=== PATIENT | female | born 1945 | race Hispanic/Latino ===

== ENCOUNTER 2017-08-12 06:47 | Day surgery (SDC) | payer MEDICARE ==
[2012-09-29 00:51] VITALS: BMI 30.9
[2017-08-12 07:47] VITALS: RESP 14
[2017-08-12] MEDS ORDERED: Midazolam 2 MG/2 ML VIAL ONE (08:01)
[2017-08-12] MEDS ORDERED: Propofol 10 mg/ml Inj (20 ML) ONE (08:01)
[2017-08-12] MEDS ORDERED: Lidocaine 1% Inj (20ml) ONE (08:03)
[2017-08-12] MEDS ORDERED: Sodium Chloride 0.9% 1,000 ML IV SCH (08:45)
[2017-08-12 09:40] VITALS: BP 168/71; PULSE 50; TEMP 98.4; O2SAT 95
== END 2017-08-12 10:15 | disposition home or self-care (01) ==
LOC: ENDO 06:47
PROVIDERS: ATTEND Specialist
DX: D12.4 Benign neoplasm of descending colon (principal); D12.3 Benign neoplasm of transverse colon; K62.1 Rectal polyp; K57.30 Diverticulosis of large intestine without perforation or abscess without bleeding; K64.4 Residual hemorrhoidal skin tags; K64.8 Other hemorrhoids; Z98.0 Intestinal bypass and anastomosis status
CPT/HCPCS: 45380; 45385; 88305; J2250; J2704; J7040 ×2

== ENCOUNTER 2017-11-14 13:48 | Inpatient (IN) | payer MEDICARE ==
[2017-11-14 13:49] VITALS: BMI 30.9
[2017-11-14] MEDS ORDERED: Sodium Chloride 0.9% 500 ML IV STA (14:22)
[2017-11-14] MEDS ORDERED: Sodium Chloride 0.9% 1,000 ML IV STA (14:55)
--- NOTE | 2017-11-14 14:56 | RAD ---
Date of service: 11/14/2017 HISTORY: abd pain/ n/v/d COMPARISON: 07/08/2014 FINDINGS: LUNGS: No active pulmonary disease. PLEURA: No significant pleural effusion identified, no pneumothorax apparent. CARDIOVASCULAR: Normal. OSSEOUS STRUCTURES: No significant abnormalities. VISUALIZED UPPER ABDOMEN: Normal. OTHER FINDINGS: None. IMPRESSION: No active disease.
[2017-11-14 15:46] LABS: VENOUS BLOOD GAS BASE EXCESS -5.5 mmol/L (0.0-2.0); VENOUS BLOOD GAS PO2 54 mm/Hg (30-55); VENOUS BLOOD PH 7.27 (7.32-7.43)
[2017-11-14 15:51] LABS: BASO # 0.03 K/mm3 (0.0-2.0); BASO % 0.1 % (0.0-3.0); EOS # 0.1 (0.0-0.7); EOS % 0.3 % (1.5-5.0); GRAN # 15.14 (1.4-6.5); GRAN % 75.5 % (50.0-68.0); HEMOGLOBIN 8.4 g/dL (12.0-16.0); LYMPH # 3.6 (1.2-3.4); LYMPH % 18.1 % (22.0-35.0); MEAN CELL VOLUME 90.2 fl (80.0-105.0); MEAN CORPUSCULAR HEMOGLOBIN 31.6 pg (25.0-35.0); MEAN PLATELET VOLUME 10.5 fl (7.0-11.0); MONO # 1.2 (0.1-0.6); RBC 2.66 10^6/uL (3.5-6.1); RED CELL DISTRIBUTION WIDTH 14.1 % (11.5-14.5); WHITE BLOOD COUNT 20.1 10^3/ul (4.5-11.0)
[2017-11-14 16:16] LABS: INR 0.96 (0.93-1.08); PARTIAL THROMBOPLASTIN TIME 21.3 Seconds (25.1-36.5); PROTHROMBIN TIME 10.9 SECONDS (9.4-12.5)
[2017-11-14 16:39] LABS: BLOOD UREA NITROGEN 119 mg/dL (7-21); GFR AFRICAN-AMERICAN > 60; GFR NON-AFRICAN AMERICAN > 60
[2017-11-14 16:40] LABS: ALB/GLOB RATIO 1.5 (1.1-1.8); ALBUMIN 3.7 g/dL (3.0-4.8)
[2017-11-14 16:41] LABS: ALT/SGPT 37 U/L (7-56); AST/SGOT 24 U/L (14-36); LIPASE 185 U/L (23-300)
[2017-11-14 16:42] LABS: TROPONIN I < 0.01 ng/mL
--- NOTE | 2017-11-14 17:02 | ED PDOC ---
Arrival/HPI - General Historian: Patient - History of Present Illness Time/Duration: Other (3 days) <Yani Nguyen - Last Filed: 11/14/17 19:37> <Karlos Johns - Last Filed: 11/16/17 15:46> - General Chief Complaint: GI Problem Time Seen by Provider: 11/14/17 14:22 - History of Present Illness Narrative History of Present Illness (Text): 11/14/17 17:00 72-year-old female presents today with nausea vomiting and diarrhea 3 days. Patient states night after eating a beef kebab she started having vomiting and diarrhea. Patient states both the vomitus and diarrhea or black in color. Patient denies any blood thinners. Patient denies any abdominal pain. Denies headaches or dizziness. Patient states she's feeling generally fatigued. She denies chest pain or shortness of breath. Patient states she finished her radiation for breast cancer and has started a new chemotherapy medication. Patient is denying any abdominal pain. Patient states she has not vomited or had any diarrhea since yesterday. Patient denies any urinary symptoms. No other complaints (Yani Nguyen) Past Medical History - Provider Review Nursing Documentation Reviewed: Yes - Travel History Have you recently traveled outside [place] w/in the past 3 mons?: No - Infectious Disease Hx of Infectious Diseases: None - Cardiac Hx Hypertension: Yes - Neurological Hx Paralysis: No - Hematological/Oncological Hx Blood Transfusions: No Hx Blood Transfusion Reaction: No Hx Cancer: Yes (Right breast) - Musculoskeletal/Rheumatological Hx Musculoskeletal Disorders: Yes (OSTEOARTHRITIS SPINE) - Psychiatric Hx Substance Use: No - Surgical History Other/Comment: Right Breast surgery for CA. - Anesthesia Hx Anesthesia Reactions: No Hx Malignant Hyperthermia: No - Suicidal Assessment Feels Threatened In Home Enviroment: No <Yani Nguyen - Last Filed: 11/14/17 19:37> Family/Social History - Physician Review Nursing Documentation Reviewed: Yes Family/Social History: Unknown Family HX Smoking Status: Never Smoked Hx Alcohol Use: Yes (RARE) Frequency of alcohol use: Socially Hx Substance Use: No <Yani Nguyen - Last Filed: 11/14/17 19:37> Allergies/Home Meds <Yani Nguyen - Last Filed: 11/14/17 19:37> <Karlos Johns - Last Filed: 11/16/17 15:46> Allergies/Adverse Reactions: Allergies codeine Allergy (Severe, Verified 11/14/17 14:23) SEVERE SWELLING/RASH Home Medications: Home Meds Medication Instructions Recorded Confirmed Ibuprofen [Motrin Tab] 800 mg PO PRN PRN 11/15/17 11/15/17 Letrozole [Femara] 2.5 mg DAILY 11/15/17 11/15/17 Lisinopril [Zestril] 40 mg PO DAILY 11/15/17 11/15/17 Valsartan/Hydrochlorothiazide 1 each PO DAILY 11/15/17 11/15/17 [Valsartan-Hctz 160-25 mg Tab] diltiaZEM [Cardizem] 240 mg PO DAILY 11/15/17 11/15/17 Review of Systems - Review of Systems Constitutional: Fatigue. absent: Fevers Respiratory: absent: SOB, Cough Gastrointestinal: Diarrhea, Nausea, Vomiting. absent: Abdominal Pain Genitourinary Female: absent: Dysuria, Frequency, Hematuria Musculoskeletal: absent: Arthralgias, Back Pain, Neck Pain Skin: absent: Rash, Pruritis Neurological: absent: Headache, Dizziness Psychiatric: absent: Anxiety, Depression, Suicidal Ideation <Yani Nguyen - Last Filed: 11/14/17 19:37> Physical Exam Vital Signs Reviewed: Yes Temperature: Afebrile Blood Pressure: Normal Pulse: Regular Respiratory Rate: Normal Appearance: Positive for: Well-Appearing, Non-Toxic, Comfortable Pain Distress: None Mental Status: Positive for: Alert and Oriented X 3 - Systems Exam Head: Present: Atraumatic Mouth: Present: Moist Mucous Membranes Neck: Present: Normal Range of Motion Respiratory/Chest: Present: Clear to Auscultation, Good Air Exchange. No: Respiratory Distress, Accessory Muscle Use Cardiovascular: Present: Regular Rate and Rhythm, Normal S1, S2. No: Murmurs Abdomen: No: Tenderness, Distention, Rebound, Guarding Rectal: Present: Occult Blood, Melena, Normal Rectal Tone. No: Gross Blood Back: Present: Normal Inspection Upper Extremity: Present: Normal ROM Neurological: Present: GCS=15, Speech Normal Skin: Present: Warm, Dry, Normal Color, Pale. No: Rashes Psychiatric: Present: Alert, Oriented x 3 <Yani Nguyen - Last Filed: 11/14/17 19:37> Vital Signs Temp Pulse Resp BP Pulse Ox 11/14/17 18:30 98.2 F 64 16 118/78 98 11/14/17 18:10 64 18 114/79 98 11/14/17 17:22 58 L 18 139/60 98 11/14/17 16:20 56 L 18 119/74 98 11/14/17 15:30 78 18 124/63 99 11/14/17 14:16 98.3 F 70 18 104/57 L 98 Medical Decision Making Reassessment Condition: Re-examined, Improved <Yani Nguyen - Last Filed: 11/14/17 19:37> - Critical Care Critical Care Minutes: 30 minutes <Karlos Johns - Last Filed: 11/16/17 15:46> ED Course and Treatment: 11/14/17 17:13 72yr old female with vomiting and diarrhea x 3 days. pt found to be pale, slightly hypotensive with heme positive black stools. pt was typed and crossed for 2 units. consent for blood transfusion was obtained. cbc; cbc; 20 hgb; 8.4 CMp: bun 119 trop; wnl INR wnl ekg; sinus bradycardia at 55 bpm normal axis no ST elevations cxr; wnl lactate; 2.2 pt reassessment; pt feeling much better. BP improved. vitals stable. dr. johns discussed case with ICU; dr. machuca will see patient at bedside. 11/14/17 17:18 dr. machuca (icu) evaluated patient at bedside; he advise protonix drip, Hold off on blood transfusion at present time and will recheck hemoglobin. advised consult dr. becerra. States patient is not a code sepsis; only give maintenance fluids. dr. johns discussed the case with dr. voss. accepts admission all aspects of this case were discussed the attending of record. impression; GI bleed admit to ICU (Yani Nguyen) Patient hypotensive, pale on initial exam, but no chest pain or abdominal pain. Patient with no tachycardia. Rectal exam positive. Patient with significant anemia when compared to previous labs. IV fluids given with improvement in BP and patient's color improved. Will admit to ICU for active gi bleedingl (Karlos Johns) - Lab Interpretations Microbiology Results: Microbiology Results 11/14/17 15:15 Blood Blood Culture - Preliminary NO GROWTH AFTER 48 HOURS 11/14/17 14:50 Blood Blood Culture - Preliminary NO GROWTH AFTER 48 HOURS Lab Results: 11/14/17 14:50 11/14/17 14:22 Lab Results 11/14/17 15:30: Blood Type Confirm B POSITIVE 11/14/17 14:50: Blood Type B POSITIVE, Antibody Screen Negative, Crossmatch See Detail, BBK History Checked No verified bt 11/14/17 14:50: PT 10.9, INR 0.96, APTT 21.3 L 11/14/17 14:50: WBC 20.1 H D, RBC 2.66 L, Hgb 8.4 L D, Hct 24.0 L, MCV 90.2 D, MCH 31.6, MCHC 35.0, RDW 14.1, Plt Count 229, MPV 10.5, Gran % 75.5 H, Lymph % ( Auto) 18.1 L, Long % (Auto) 6.0, Eos % (Auto) 0.3 L, Baso % (Auto) 0.1, Gran # 15.14 H, Lymph # (Auto) 3.6 H, Long # (Auto) 1.2 H, Eos # (Auto) 0.1, Baso # ( Auto) 0.03 11/14/17 14:50: pO2 54, VBG pH 7.27 L, VBG pCO2 46.0, VBG HCO3 21.1, VBG Total CO2 22.5, VBG O2 Sat (Calc) 90.5 H, VBG Base Excess -5.5 L, VBG Potassium 4.1, Glucose 159 H, Lactate 2.2 H, FiO2 21.0, Sodium 137.0, Chloride 107.0, Venous Blood Potassium 4.1 11/14/17 14:22: Sodium 138, Potassium 4.3, Chloride 105, Carbon Dioxide 19 L, Anion Gap 18, BUN 119 H, Creatinine 0.5 L, Est GFR ( Amer) > 60, Est GFR (Non-Af Amer) > 60, Random Glucose 148 H, Calcium 9.0, Total Bilirubin 0.5, AST 24, ALT 37, Alkaline Phosphatase 68, Lactate Dehydrogenase 484, Total Creatine Kinase 30 L, Troponin I < 0.01, Total Protein 6.1, Albumin 3.7, Globulin 2.4, Albumin/Globulin Ratio 1.5, Lipase 185 - RAD Interpretation Radiology Orders: 11/14/17 14:22 CHEST PORTABLE [RAD] Stat - Medication Orders Current Medication Orders: Discontinued Medications Sodium Chloride (Sodium Chloride 0.9%) 1,000 mls @ 999 mls/hr IV .Q1H1M STA Stop: 11/14/17 15:55 Last Admin: 11/14/17 15:00 Dose: 999 mls/hr eMAR Start Stop Document 11/14/17 15:00 ROBERT (Rec: 11/14/17 15:56 ROBERT HI-PC) Intravenous Solution Start Date 11/14/17 Start Time 15:00 End Date 11/14/17 End time 16:00 Total Infusion Time 60 Sodium Chloride (Sodium Chloride 0.9%) 1,000 mls @ 100 mls/hr IV .Q10H [facility] Last Admin: 11/14/17 17:15 Dose: 100 mls/hr eMAR Start Stop Document 11/14/17 17:15 ROBERT (Rec: 11/14/17 17:18 ROBERT HI-PC) Intravenous Solution Start Date 11/14/17 Start Time 17:15 Pantoprazole Sodium (Protonix 40mg Ivpb) 40 mg in 100 mls @ 20 mls/hr IVPB .Q5H [facility] Last Admin: 11/16/17 09:51 Dose: Lactated Ringer's (Lactated Ringer's) 1,000 mls @ 100 mls/hr IV .Q10H [facility] Last Admin: 11/15/17 22:11 Dose: 100 mls/hr eMAR Start Stop Document 11/15/17 22:11 CDL (Rec: 11/15/17 22:11 CDL [id number]) Intravenous Solution Start Date 11/15/17 Start Time 22:11 Sodium Chloride (Sodium Chloride 0.9%) 1,000 mls @ 100 mls/hr IV .Q10H [facility] Ondansetron HCl (Zofran Inj) 4 mg IVP STAT STA Stop: 11/14/17 15:14 Last Admin: 11/14/17 15:50 Dose: 4 mg IVP Administration Document 11/14/17 15:50 ROBERT (Rec: 11/14/17 15:57 ROBERT HI-PC) Charges for Administration # of IVP Administrations 1 Pantoprazole Sodium (Protonix Inj) 40 mg IVP STAT STA Stop: 11/14/17 14:41 Last Admin: 11/14/17 15:50 Dose: 40 mg IVP Administration Document 11/14/17 15:50 ROBERT (Rec: 11/14/17 15:57 ROBERT [id number]) Charges for Administration # of IVP Administrations 1 Disposition/Present on Arrival - Present on Arrival Any Indicators Present on Arrival: No History of DVT/PE: No History of Uncontrolled Diabetes: No Urinary Catheter: No History of Decub. Ulcer: No History Surgical Site Infection Following: None - Disposition Have Diagnosis and Disposition been Completed?: Yes Disposition Time: 16:30 Patient Plan: Admission <Yani Nguyen - Last Filed: 11/14/17 19:37> <Karlos Johns - Last Filed: 11/16/17 15:46> - Disposition Diagnosis: GI bleed, Anemia Disposition: HOSPITALIZED Condition: CRITICAL
[2017-11-14] MEDS ORDERED: Sodium Chloride 0.9% 1,000 ML IV SCH (17:15)
[2017-11-14 17:39] LABS: URINE BILIRUBIN NEGATIVE (NEGATIVE); URINE BLOOD NEGATIVE (NEGATIVE); URINE GLUCOSE (UA) NEGATIVE (NEGATIVE); URINE LEUKOCYTE ESTERASE SMALL Leu/uL (NEGATIVE); URINE PROTEIN NEGATIVE mg/dL (<30 mg/dL); URINE UROBILINOGEN 0.2 E.U./dL (<1 E.U./dL)
[2017-11-14 17:41] LABS: URINE APPEARANCE CLEAR (CLEAR); URINE COLOR YELLOW (YELLOW)
[2017-11-14] MEDS: Pantoprazole 40mg/100mL NS 40 MG/100 ML BAG IVPB SCH ×2 (17:54→23:14)
[2017-11-14 17:56] LABS: URINE EPITHELIAL CELLS 0 - 2 /hpf (0-5)
[2017-11-14 18:58] LABS: HEMOGLOBIN 7.5 g/dL (12.0-16.0); MEAN CELL VOLUME 90.7 fl (80.0-105.0); MEAN CORPUSCULAR HEMOGLOBIN 31.6 pg (25.0-35.0); MEAN CORPUSCULAR HGB CONC 34.9 g/dl (31.0-37.0); MEAN PLATELET VOLUME 10.1 fl (7.0-11.0); RBC 2.37 10^6/uL (3.5-6.1); RED CELL DISTRIBUTION WIDTH 14.1 % (11.5-14.5); WHITE BLOOD COUNT 17.5 10^3/ul (4.5-11.0)
[2017-11-14 18:59] LABS: VENOUS BLOOD GAS BASE EXCESS -7.5 mmol/L (0.0-2.0); VENOUS BLOOD GAS PO2 52 mm/Hg (30-55); VENOUS BLOOD PH 7.23 (7.32-7.43)
[2017-11-14 22:45] LABS: VENOUS BLOOD GAS BASE EXCESS -5.8 mmol/L (0.0-2.0); VENOUS BLOOD GAS PO2 62 mm/Hg (30-55); VENOUS BLOOD PH 7.31 (7.32-7.43)
--- NOTE | 2017-11-15 02:30 | CON ---
DATE: 11/14/2017 HISTORY OF PRESENT ILLNESS: This is a 72-year-old lady with history of hypertension and breast cancer who presented with 3 days' of coffee-ground vomiting and black stool/diarrhea, started without any provoking events, and becoming more frequent. She did have some fatty food right before she had first episode of vomiting. At some point, she felt a little bit lightheaded and had near syncopal episode. She also reports that she was generally fatigued. She denies chest pain, shortness of breath. She had radiation for breast cancer and has started new chemotherapy medication. She denies any abdominal pain. Since yesterday, she did not have any diarrhea or vomiting. She also denies any urinary symptoms. PAST MEDICAL HISTORY: Breast cancer and hypertension. HOME MEDICATIONS: Hydrochlorothiazide and lisinopril. FAMILY HISTORY: Noncontributory. SOCIAL HISTORY: No alcohol or illicit drug abuse. No tobacco smoking. REVIEW OF SYSTEMS: Review of 12-organ system other than mentioned in history of present illness is negative. PHYSICAL EXAMINATION: VITAL SIGNS: Blood pressure 139/60, heart rate 58, respiratory rate 18, oxygen saturation 98% on room air, temperature 98.3. ENT: Head and neck atraumatic. LUNGS: Clear auscultation bilaterally. HEART: Regular rate and rhythm. S1 and S2 normal. ABDOMEN: Soft, nontender, nondistended. MUSCULOSKELETAL: No C/C/E. NEUROLOGIC: The patient moves all extremities spontaneously. SKIN: Moist. PSYCHIATRIC: The patient is alert, awake, and oriented x3. LABORATORY DATA: WBC 20.1, hemoglobin 8.4 (last hemoglobin about year ago was 13.2), platelet count 229. Sodium 138, potassium 4.3, chloride 105, carbon dioxide 19, BUN 119, creatinine 0.5, glucose 148. AST 24, ALT 37, total bilirubin 0.5, lipase 185. INR 0.96, PTT 21.3. VBG showed lactic acid 2.2 and pH 7.8. ASSESSMENT AND PLAN: This is a 72-year-old lady who presented with massive upper gastrointestinal bleed with elevated lactic acid level and significant drop in the baseline hemoglobin (massive--based on her symptoms associated with upper GI bleed) and drop in Hb level--based on value about a year ago). We will proceed with 2 large-bore PIV, fluid resuscitation, repeating lactic acid to ascertain resolution of lactic acidosis, Protonix drip, GI consultation for consideration of upper endoscopy. We will maintain hemoglobin level within 7 to 9 range, once lactic acidosis resolved and she is asymptomatic (Arnie et al, [facility] 2013). Serial CBC every 4 hours for now. Mild bradycardia most likely due to cardizem-->will hold. No troponin elevation. ICU admission. ccm time 40 min Rohan Low MD MTDMily
[2017-11-15 02:50] LABS: HEMOGLOBIN 8.4 g/dL (12.0-16.0); MEAN CELL VOLUME 88.8 fl (80.0-105.0); MEAN CORPUSCULAR HEMOGLOBIN 31.2 pg (25.0-35.0); MEAN CORPUSCULAR HGB CONC 35.1 g/dl (31.0-37.0); MEAN PLATELET VOLUME 10.4 fl (7.0-11.0); RBC 2.69 10^6/uL (3.5-6.1); WHITE BLOOD COUNT 13.2 10^3/ul (4.5-11.0)
[2017-11-15 03:43] LABS: VENOUS BLOOD GAS BASE EXCESS -4.3 mmol/L (0.0-2.0); VENOUS BLOOD GAS PO2 64 mm/Hg (30-55); VENOUS BLOOD PH 7.32 (7.32-7.43)
[2017-11-15] MEDS: Pantoprazole 40mg/100mL NS 40 MG/100 ML BAG IVPB SCH ×6 (04:19→23:30)
[2017-11-15 06:25] LABS: HEMOGLOBIN 8.2 g/dL (12.0-16.0); MEAN CELL VOLUME 88.8 fl (80.0-105.0); MEAN CORPUSCULAR HEMOGLOBIN 30.6 pg (25.0-35.0); MEAN CORPUSCULAR HGB CONC 34.5 g/dl (31.0-37.0); RBC 2.68 10^6/uL (3.5-6.1); RED CELL DISTRIBUTION WIDTH 14.3 % (11.5-14.5); WHITE BLOOD COUNT 13.4 10^3/ul (4.5-11.0)
[2017-11-15 07:06] LABS: ALB/GLOB RATIO 1.3 (1.1-1.8); CALCIUM 8.7 mg/dL (8.4-10.5)
[2017-11-15 07:13] LABS: VENOUS BLOOD GAS BASE EXCESS -4.5 mmol/L (0.0-2.0); VENOUS BLOOD GAS PO2 102 mm/Hg (30-55); VENOUS BLOOD PH 7.33 (7.32-7.43)
[2017-11-15] MEDS: Lactated Ringer's 1,000 ML IV SCH ×3 (07:50→22:11)
--- NOTE | 2017-11-15 09:28 | PN ---
DATE: 11/15/2017 SUBJECTIVE: The patient is seen and examined at bedside. She is comfortable. She talks full sentences. She is not in respiratory or otherwise distress. She did not have any hematemesis or coffee-ground vomiting overnight. She did not have any tarry stool, bloody stool or melenic stool overnight. She did not have overnight chest pain, shortness of breath or abdominal pain. PHYSICAL EXAMINATION: VITAL SIGNS: Heart rate 53, blood pressure 126/62, oxygen saturation 99% on room air, respiratory rate 18. ENT: Head and neck atraumatic. LUNGS: Clear to auscultation bilaterally. HEART: Regular rate and rhythm. S1, S2 normal. ABDOMEN: Soft, nontender, nondistended. MUSCULOSKELETAL: No C/C/E. NEURO: The patient moves all extremities spontaneously. SKIN: Moist. PSYCH: The patient is alert, awake and oriented x3. LABORATORY DATA: WBC 13.4, hemoglobin 8.2 (the patient received 1 unit of PRBC with appropriate increment in hemoglobin level from 7.5-8.4), platelet count 179. Lactic acid 1.2 (down from 2.2). Sodium 142, potassium 4.4, chloride 112, carbon dioxide 21, BUN 81, creatinine 1.3, glucose 126. Troponin, first one is less than 0.01. The second one is pending. MEDICATIONS: Protonix drip, normal saline at 100 mL/hour (will be switched to lactated Ringer). ASSESSMENT AND PLAN: This 72-year-old lady who presented yesterday to [facility] [place] [facility] with concern for hemorrhagic shock due to upper gastrointestinal bleed. Her lactic acidosis resolved, her blood pressure remained stable throughout ICU course, her hemoglobin responded near appropriately to 1 unit of blood transfusion. She remains asymptomatic and did not have any signs of upper gastrointestinal bleed overnight. She is a little bit bradycardic due to extended release formulation of Cardizem that she has been taking at home, however, it is on hold now. She is alert, awake, oriented, able to protect her airways, not in respiratory or otherwise distress. We will continue with serial CBC, however, will taper frequency of CBC checks. GI consultation is pending. Protonix drip continued. Okay to downgrade to telemetry. ccm time 40 min Rohan Low MD STEPHAN
--- NOTE | 2017-11-15 13:29 | CT ---
Date of service: 11/14/2017 PROCEDURE: CT Abdomen and Pelvis without intravenous contrast HISTORY: GI Bleed COMPARISON: None. TECHNIQUE: Without contrast.. Contrast dose: Radiation dose: Total exam DLP = 1009 mGy-cm. This CT exam was performed using one or more of the following dose reduction techniques: Automated exposure control, adjustment of the mA and/or kV according to patient size, and/or use of iterative reconstruction technique. FINDINGS: LOWER THORAX: Unremarkable. LIVER: Unremarkable. No gross lesion or ductal dilatation. GALLBLADDER AND BILE DUCTS: Unremarkable. PANCREAS: Unremarkable. No gross lesion or ductal dilatation. SPLEEN: Unremarkable. ADRENALS: Unremarkable. No mass. KIDNEYS AND URETERS: Unremarkable. No hydronephrosis. No solid mass. VASCULATURE: Unremarkable. No aortic aneurysm. BOWEL: There is mild diverticulosis of the descending and sigmoid colon without evidence of diverticulitis APPENDIX: Unremarkable. Normal appendix. PERITONEUM: Unremarkable. No free fluid. No free air. LYMPH NODES: Unremarkable. No enlarged lymph nodes. BLADDER: Unremarkable. REPRODUCTIVE: Unremarkable. BONES: No acute fracture. OTHER FINDINGS: The report concurs with the preliminary [facility] report IMPRESSION: There is mild diverticulosis of the descending and sigmoid colon without evidence of diverticulitis
--- NOTE | 2017-11-15 15:03 | HP ---
HISTORY OF PRESENT ILLNESS: The patient is a 72 year old woman with a past medical history of hypertension and breast cancer who presented for evaluation of a 3 day history of nausea, vomiting and diarrhea. The patient reports that she was in her usual state of health until approximately 3 days prior to presentation to the ED when she developed mild epigastric abdominal pain and subsequently developed nausea. Her symptoms progressed to vomiting of reported coffee-ground emesis as well as melena and hematochezia. The patient reports that several hours later she developed lightheadedness and near syncope. Given her symptoms she opted for ED evaluation. Upon arrival to the ED she was found to be hypotensive and bradycardic. She was also somnolent but arousable. Labs demonstrated a hemoglobin of 8.4 (baseline Hb 12-13). The patient was promptly evaluated by the ICU team and was started on IV fluid resuscitation, transfused 2 units of PRBCs and subsequently admitted to the ICU for continued management of symptomatic anemia and probable GI bleed. PAST MEDICAL HISTORY: As per HPI. PAST SURGICAL HISTORY: None. ALLERGIES: Codeine. MEDICATIONS: Valsartan/HCTZ 160/25 mg p.o. daily, Lisinopril 40 mg p.o. daily, Diltiazem 240 mg p.o. daily, Letrozole 2.5 mg p.o. daily and Motrin 800 mg p.o. t.i.d. p.r.n. pain. FAMILY HISTORY: Noncontributory. SOCIAL HISTORY: The patient denies any toxic habits. REVIEW OF SYSTEMS: A 12-point review of systems is negative except as per HPI. PHYSICAL EXAMINATION: VITAL SIGNS: Temperature 98, pulse 48, blood pressure 123/54, respiratory rate 18, oxygen saturation 99% on room air. GENERAL: No apparent distress. HEENT: PERRL, EOMI. No scleral icterus. Mild conjunctival pallor is noted. NECK: No JVD. No bruits. LUNGS: Clear to auscultation. CARDIOVASCULAR: Regular rate and rhythm. Normal S1 and S2. ABDOMEN: Normoactive bowel sounds, soft, tender to palpation to epigastrium with voluntary guarding. No rigidity. No tympany. EXTREMITIES: No edema. NEUROLOGIC: Awake, alert and oriented x 3. No focal motor deficits. LABORATORY DATA: WBC 13.4, hemoglobin 8.2, hematocrit 24, platelets 179. Sodium 142, potassium 4.4, chloride 112, bicarb 21, BUN 81, creatinine 1.3, glucose 126. IMAGING STUDIES: CT of the abdomen and pelvis without contrast demonstrates mild diverticulosis of the descending and sigmoid colon with no evidence of diverticulitis. ASSESSMENT: The patient is a 72 year old woman with a past medical history of hypertension and breast cancer who presented with a 3 day history of hematemesis, melena and malaise and was initially admitted to the ICU for management of symptomatic anemia and suspected upper GI bleed. PLAN: 1. Symptomatic anemia, likely secondary to upper GI bleed s/p multiple transfusions of PRBCs, improving. Labs demonstrate stage H/H. GI evaluation with Dr. Doherty is ordered and pending. We will continue to monitor CBC daily and transfuse as needed. 2. Probable upper GI bleed. The patient remains on Protonix drip and IV fluid hydration. She has also been transfused multiple units of PRBCs. She is pending EGD with Dr. Doherty tomorrow morning. 3. Hypertension. Blood pressure remains stable off antihypertensives. We will continue to monitor hemodynamics and resume antihypertensives as needed. 4. Bradycardia, etiology likely secondary to Cardizem. We will continue to hold medications and resume as needed. 5. Prophylaxis. GI prophylaxis is not indicated as the patient remains on Protonix drip. DVT prophylaxis is not indicated as the patient is ambulatory. CODE STATUS: Full code. Clayton Hoang MD MTDMily
--- NOTE | 2017-11-15 15:09 | CP.CCUPN ---
<Guanaco Piña - Last Filed: 11/15/17 15:03> CCU Subjective - Physician Review Subjective (Free Text): Guanaco Piña DO PGY-1, ICU Progress note for Dr. Low Pt seen and examined at bedside. Pt has no complaints at this time. No acute events overnight. Pt has did not have a bowel movement for the past one day, but is passing gas. Pt denies fever, headache, lightheadedness, dizziness, weakness, chest pain, palpitations, SOB, abdominal pain, hematemesis, hematochezia, melena, n/v/d, urinary complaints, paresthesias. A 12-point ROS was reviewed and unremarkable except as above. CCU Objective - Vital Signs / Intake & Output Vital Signs (Last 4 hours): Vital Signs Temp Pulse Resp BP 11/15/17 12:21 98 F 48 L 18 123/54 L 11/15/17 12:00 98 F 48 L 18 123/54 L 11/15/17 11:36 97.4 F L 48 L 16 135/66 11/15/17 11:16 97.1 F L 46 L 15 134/50 L Intake and Output (Last 8hrs): Intake & Output 11/15/17 11/15/17 11/15/17 06:59 14:59 22:59 Intake Total 861 375 Output Total 1755 Balance -894 375 Weight 80.739 kg Intake: IV 761 Left Forearm 436 Left Hand 325 Blood Product 0 325 Red Blood Cells Cpd As1 325 Lr Unit [id number] Red Blood Cells Cpd As1 0 Lr Unit [id number] Other 100 50 Red Blood Cells Cpd As1 50 Lr Unit [id number] Red Blood Cells Cpd As1 100 Lr Unit [id number] Output: Urine 1755 Urine, Voided 1755 - Physical Exam Head: Positive for: Atraumatic Extroacular Muscles: Positive for: EOMI Mouth: Positive for: Moist Mucous Membranes Neck: Positive for: Normal Range of Motion Respiratory/Chest: Positive for: Clear to Auscultation, Good Air Exchange. Negative for: Respiratory Distress, Accessory Muscle Use Cardiovascular: Positive for: Regular Rate and Rhythm, Normal S1, S2. Negative for: Murmurs Abdomen: Positive for: Normal Bowel Sounds. Negative for: Tenderness, Distention, Rebound, Guarding Back: Positive for: Normal Inspection Upper Extremity: Positive for: Normal Inspection, Normal ROM, Capillary Refill < 2s Lower Extremity: Positive for: Normal Inspection, Capillary Refill < 2 s Neurological: Positive for: GCS=15, Speech Normal Skin: Positive for: Warm, Dry, Normal Color. Negative for: Rashes Psychiatric: Positive for: Alert, Oriented x 3 - Medications Active Medications: Active Medications Generic Name Dose Route Start Last Admin Trade Name Freq PRN Reason Stop Dose Admin Pantoprazole Sodium 40 mg in 100 mls @ 20 mls/hr 11/14/17 17:30 11/15/17 14: 28 Protonix 40mg Ivpb IVPB 20 mls/hr .Q5H GARTH Administration Lactated Ringer's 1,000 mls @ 100 mls/hr 11/15/17 07:45 11/15/17 07:50 Lactated Ringer's IV 100 mls/hr .Q10H GARTH Administration - Patient Studies Lab Studies: Microbiology Studies 11/14/17 16:50 Urine Culture - Final Urine Lab Studies 11/15/17 11/15/17 11/15/17 Range/Units 06:00 06:00 06:00 WBC (4.5-11.0) 10^3/ul RBC (3.5-6.1) 10^6/uL Hgb (12.0-16.0) g/dL Hct (36.0-48.0) % MCV (80.0-105.0) fl MCH (25.0-35.0) pg MCHC (31.0-37.0) g/dl RDW (11.5-14.5) % Plt Count (120.0-450.0) 10^3/uL MPV (7.0-11.0) fl pO2 102 H (30-55) mm/Hg VBG pH 7.33 (7.32-7.43) VBG pCO2 40.0 (40-60) VBG HCO3 21.1 (21-28) mmol/l VBG Total CO2 22.3 (22-28) mmol.L VBG O2 Sat (Calc) 99.8 H (40-65) % VBG Base Excess -4.5 L (0.0-2.0) mmol/L VBG Potassium 4.4 (3.6-5.2) mmol/L Sodium 142 139.0 (132-148) mmol/L Chloride 112 H 113.0 H (98-107) mmol/L Glucose 131 H (65-105) mg/dl Lactate 1.2 (0.7-2.1) mmol/L FiO2 21.0 % Potassium 4.4 (3.6-5.0) mmol/L Carbon Dioxide 21 (21-33) mmol/L Anion Gap 13 (10-20) BUN 81 H (7-21) mg/dL Creatinine 1.3 H (0.7-1.2) mg/dl Est GFR ( Amer) 48 Est GFR (Non-Af Amer) 40 Random Glucose 126 H (70-110) mg/dL Calcium 8.7 (8.4-10.5) mg/dL Phosphorus 3.6 (2.5-4.5) mg/dL Magnesium 2.2 (1.7-2.2) mg/dL Total Bilirubin 1.2 (0.2-1.3) mg/dL AST 26 (14-36) U/L ALT 42 (7-56) U/L Alkaline Phosphatase 63 (38-126) U/L Troponin I < 0.01 ng/mL Total Protein 5.3 L (5.8-8.3) g/dL Albumin 3.0 (3.0-4.8) g/dL Globulin 2.3 gm/dL Albumin/Globulin Ratio 1.3 (1.1-1.8) Venous Blood Potassium 4.4 (3.6-5.2) mmol/L Urine Color (YELLOW) Urine Appearance (CLEAR) Urine pH (4.7-8.0) Ur Specific [place] (1.005-1.035) Urine Protein (<30 mg/dL) mg/dL Urine Glucose (UA) (NEGATIVE) mg/dL Urine Ketones (NEGATIVE) mg/dL Urine Blood (NEGATIVE) Urine Nitrate (NEGATIVE) Urine Bilirubin (NEGATIVE) Urine Urobilinogen (<1 E.U./dL) E.U./dL Ur Leukocyte Esterase (NEGATIVE) Qasim/uL Urine RBC (0-2) /hpf Urine WBC (0-6) /hpf Ur Epithelial Cells (0-5) /hpf 11/15/17 11/15/17 11/15/17 Range/Units 06:00 03:30 02:30 WBC 13.4 H 13.2 H D (4.5-11.0) 10^3/ul RBC 2.68 L 2.69 L (3.5-6.1) 10^6/uL Hgb 8.2 L 8.4 L (12.0-16.0) g/dL Hct 23.8 L 23.9 L (36.0-48.0) % MCV 88.8 88.8 (80.0-105.0) fl MCH 30.6 31.2 (25.0-35.0) pg MCHC 34.5 35.1 (31.0-37.0) g/dl RDW 14.3 14.0 (11.5-14.5) % Plt Count 179 165 (120.0-450.0) 10^3/uL MPV 10.0 10.4 (7.0-11.0) fl pO2 64 H (30-55) mm/Hg VBG pH 7.32 (7.32-7.43) VBG pCO2 42.0 (40-60) VBG HCO3 21.6 (21-28) mmol/l VBG Total CO2 22.9 (22-28) mmol.L VBG O2 Sat (Calc) 96.4 H (40-65) % VBG Base Excess -4.3 L (0.0-2.0) mmol/L VBG Potassium 4.4 (3.6-5.2) mmol/L Sodium 138.0 (132-148) mmol/L Chloride 113.0 H (98-107) mmol/L Glucose 141 H (65-105) mg/dl Lactate 1.1 (0.7-2.1) mmol/L FiO2 21.0 % Potassium (3.6-5.0) mmol/L Carbon Dioxide (21-33) mmol/L Anion Gap (10-20) BUN (7-21) mg/dL Creatinine (0.7-1.2) mg/dl Est GFR ( Amer) Est GFR (Non-Af Amer) Random Glucose (70-110) mg/dL Calcium (8.4-10.5) mg/dL Phosphorus (2.5-4.5) mg/dL Magnesium (1.7-2.2) mg/dL Total Bilirubin (0.2-1.3) mg/dL AST (14-36) U/L ALT (7-56) U/L Alkaline Phosphatase (38-126) U/L Troponin I ng/mL Total Protein (5.8-8.3) g/dL Albumin (3.0-4.8) g/dL Globulin gm/dL Albumin/Globulin Ratio (1.1-1.8) Venous Blood Potassium 4.4 (3.6-5.2) mmol/L Urine Color (YELLOW) Urine Appearance (CLEAR) Urine pH (4.7-8.0) Ur Specific [place] (1.005-1.035) Urine Protein (<30 mg/dL) mg/dL Urine Glucose (UA) (NEGATIVE) mg/dL Urine Ketones (NEGATIVE) mg/dL Urine Blood (NEGATIVE) Urine Nitrate (NEGATIVE) Urine Bilirubin (NEGATIVE) Urine Urobilinogen (<1 E.U./dL) E.U./dL Ur Leukocyte Esterase (NEGATIVE) Qasim/uL Urine RBC (0-2) /hpf Urine WBC (0-6) /hpf Ur Epithelial Cells (0-5) /hpf 11/14/17 11/14/17 11/14/17 Range/Units 22:32 18:39 18:39 WBC 17.5 H (4.5-11.0) 10^3/ul RBC 2.37 L (3.5-6.1) 10^6/uL Hgb 7.5 L (12.0-16.0) g/dL Hct 21.5 L (36.0-48.0) % MCV 90.7 (80.0-105.0) fl MCH 31.6 (25.0-35.0) pg MCHC 34.9 (31.0-37.0) g/dl RDW 14.1 (11.5-14.5) % Plt Count 220 (120.0-450.0) 10^3/uL MPV 10.1 (7.0-11.0) fl pO2 62 H 52 (30-55) mm/Hg VBG pH 7.31 L 7.23 L (7.32-7.43) VBG pCO2 40.0 48.0 (40-60) VBG HCO3 20.1 L 20.1 L (21-28) mmol/l VBG Total CO2 21.3 L 21.6 L (22-28) mmol.L VBG O2 Sat (Calc) 95.1 H 88.9 H (40-65) % VBG Base Excess -5.8 L -7.5 L (0.0-2.0) mmol/L VBG Potassium 4.1 4.1 (3.6-5.2) mmol/L Sodium 139.0 138.0 (132-148) mmol/L Chloride 113.0 H 110.0 H (98-107) mmol/L Glucose 142 H 132 H (65-105) mg/dl Lactate 1.2 1.3 (0.7-2.1) mmol/L FiO2 21.0 21.0 % Potassium (3.6-5.0) mmol/L Carbon Dioxide (21-33) mmol/L Anion Gap (10-20) BUN (7-21) mg/dL Creatinine (0.7-1.2) mg/dl Est GFR ( Amer) Est GFR (Non-Af Amer) Random Glucose (70-110) mg/dL Calcium (8.4-10.5) mg/dL Phosphorus (2.5-4.5) mg/dL Magnesium (1.7-2.2) mg/dL Total Bilirubin (0.2-1.3) mg/dL AST (14-36) U/L ALT (7-56) U/L Alkaline Phosphatase (38-126) U/L Troponin I ng/mL Total Protein (5.8-8.3) g/dL Albumin (3.0-4.8) g/dL Globulin gm/dL Albumin/Globulin Ratio (1.1-1.8) Venous Blood Potassium 4.1 4.1 (3.6-5.2) mmol/L Urine Color (YELLOW) Urine Appearance (CLEAR) Urine pH (4.7-8.0) Ur Specific [place] (1.005-1.035) Urine Protein (<30 mg/dL) mg/dL Urine Glucose (UA) (NEGATIVE) mg/dL Urine Ketones (NEGATIVE) mg/dL Urine Blood (NEGATIVE) Urine Nitrate (NEGATIVE) Urine Bilirubin (NEGATIVE) Urine Urobilinogen (<1 E.U./dL) E.U./dL Ur Leukocyte Esterase (NEGATIVE) Qasim/uL Urine RBC (0-2) /hpf Urine WBC (0-6) /hpf Ur Epithelial Cells (0-5) /hpf 11/14/17 Range/Units 16:50 WBC (4.5-11.0) 10^3/ul RBC (3.5-6.1) 10^6/uL Hgb (12.0-16.0) g/dL Hct (36.0-48.0) % MCV (80.0-105.0) fl MCH (25.0-35.0) pg MCHC (31.0-37.0) g/dl RDW (11.5-14.5) % Plt Count (120.0-450.0) 10^3/uL MPV (7.0-11.0) fl pO2 (30-55) mm/Hg VBG pH (7.32-7.43) VBG pCO2 (40-60) VBG HCO3 (21-28) mmol/l VBG Total CO2 (22-28) mmol.L VBG O2 Sat (Calc) (40-65) % VBG Base Excess (0.0-2.0) mmol/L VBG Potassium (3.6-5.2) mmol/L Sodium (132-148) mmol/L Chloride (98-107) mmol/L Glucose (65-105) mg/dl Lactate (0.7-2.1) mmol/L FiO2 % Potassium (3.6-5.0) mmol/L Carbon Dioxide (21-33) mmol/L Anion Gap (10-20) BUN (7-21) mg/dL Creatinine (0.7-1.2) mg/dl Est GFR ( Amer) Est GFR (Non-Af Amer) Random Glucose (70-110) mg/dL Calcium (8.4-10.5) mg/dL Phosphorus (2.5-4.5) mg/dL Magnesium (1.7-2.2) mg/dL Total Bilirubin (0.2-1.3) mg/dL AST (14-36) U/L ALT (7-56) U/L Alkaline Phosphatase (38-126) U/L Troponin I ng/mL Total Protein (5.8-8.3) g/dL Albumin (3.0-4.8) g/dL Globulin gm/dL Albumin/Globulin Ratio (1.1-1.8) Venous Blood Potassium (3.6-5.2) mmol/L Urine Color Yellow (YELLOW) Urine Appearance Clear (CLEAR) Urine pH 6.0 (4.7-8.0) Ur Specific [place] 1.015 (1.005-1.035) Urine Protein Negative (<30 mg/dL) mg/dL Urine Glucose (UA) Negative (NEGATIVE) mg/dL Urine Ketones Negative (NEGATIVE) mg/dL Urine Blood Negative (NEGATIVE) Urine Nitrate Negative (NEGATIVE) Urine Bilirubin Negative (NEGATIVE) Urine Urobilinogen 0.2 (<1 E.U./dL) E.U./dL Ur Leukocyte Esterase Small H (NEGATIVE) Qasim/uL Urine RBC 1 - 3 (0-2) /hpf Urine WBC 1 - 3 (0-6) /hpf Ur Epithelial Cells 0 - 2 (0-5) /hpf Laboratory Results - last 24 hr 11/14/17 11/14/17 11/14/17 16:50 18:39 18:39 WBC 17.5 H RBC 2.37 L Hgb 7.5 L Hct 21.5 L MCV 90.7 MCH 31.6 MCHC 34.9 RDW 14.1 Plt Count 220 MPV 10.1 pO2 52 VBG pH 7.23 L VBG pCO2 48.0 VBG HCO3 20.1 L VBG Total CO2 21.6 L VBG O2 Sat (Calc) 88.9 H VBG Base Excess -7.5 L VBG Potassium 4.1 Sodium 138.0 Chloride 110.0 H Glucose 132 H Lactate 1.3 FiO2 21.0 Potassium Carbon Dioxide Anion Gap BUN Creatinine Est GFR ( Amer) Est GFR (Non-Af Amer) Random Glucose Calcium Phosphorus Magnesium Total Bilirubin AST ALT Alkaline Phosphatase Troponin I Total Protein Albumin Globulin Albumin/Globulin Ratio Venous Blood Potassium 4.1 Urine Color Yellow Urine Appearance Clear Urine pH 6.0 Ur Specific [place] 1.015 Urine Protein Negative Urine Glucose (UA) Negative Urine Ketones Negative Urine Blood Negative Urine Nitrate Negative Urine Bilirubin Negative Urine Urobilinogen 0.2 Ur Leukocyte Esterase Small H Urine RBC 1 - 3 Urine WBC 1 - 3 Ur Epithelial Cells 0 - 2 11/14/17 11/15/17 11/15/17 22:32 02:30 03:30 WBC 13.2 H D RBC 2.69 L Hgb 8.4 L Hct 23.9 L MCV 88.8 MCH 31.2 MCHC 35.1 RDW 14.0 Plt Count 165 MPV 10.4 pO2 62 H 64 H VBG pH 7.31 L 7.32 VBG pCO2 40.0 42.0 VBG HCO3 20.1 L 21.6 VBG Total CO2 21.3 L 22.9 VBG O2 Sat (Calc) 95.1 H 96.4 H VBG Base Excess -5.8 L -4.3 L VBG Potassium 4.1 4.4 Sodium 139.0 138.0 Chloride 113.0 H 113.0 H Glucose 142 H 141 H Lactate 1.2 1.1 FiO2 21.0 21.0 Potassium Carbon Dioxide Anion Gap BUN Creatinine Est GFR ( Amer) Est GFR (Non-Af Amer) Random Glucose Calcium Phosphorus Magnesium Total Bilirubin AST ALT Alkaline Phosphatase Troponin I Total Protein Albumin Globulin Albumin/Globulin Ratio Venous Blood Potassium 4.1 4.4 Urine Color Urine Appearance Urine pH Ur Specific [place] Urine Protein Urine Glucose (UA) Urine Ketones Urine Blood Urine Nitrate Urine Bilirubin Urine Urobilinogen Ur Leukocyte Esterase Urine RBC Urine WBC Ur Epithelial Cells 11/15/17 11/15/17 11/15/17 06:00 06:00 06:00 WBC 13.4 H RBC 2.68 L Hgb 8.2 L Hct 23.8 L MCV 88.8 MCH 30.6 MCHC 34.5 RDW 14.3 Plt Count 179 MPV 10.0 pO2 102 H VBG pH 7.33 VBG pCO2 40.0 VBG HCO3 21.1 VBG Total CO2 22.3 VBG O2 Sat (Calc) 99.8 H VBG Base Excess -4.5 L VBG Potassium 4.4 Sodium 139.0 142 Chloride 113.0 H 112 H Glucose 131 H Lactate 1.2 FiO2 21.0 Potassium 4.4 Carbon Dioxide 21 Anion Gap 13 BUN 81 H Creatinine 1.3 H Est GFR ( Amer) 48 Est GFR (Non-Af Amer) 40 Random Glucose 126 H Calcium 8.7 Phosphorus 3.6 Magnesium 2.2 Total Bilirubin 1.2 AST 26 ALT 42 Alkaline Phosphatase 63 Troponin I Total Protein 5.3 L Albumin 3.0 Globulin 2.3 Albumin/Globulin Ratio 1.3 Venous Blood Potassium 4.4 Urine Color Urine Appearance Urine pH Ur Specific [place] Urine Protein Urine Glucose (UA) Urine Ketones Urine Blood Urine Nitrate Urine Bilirubin Urine Urobilinogen Ur Leukocyte Esterase Urine RBC Urine WBC Ur Epithelial Cells 11/15/17 06:00 WBC RBC Hgb Hct MCV MCH MCHC RDW Plt Count MPV pO2 VBG pH VBG pCO2 VBG HCO3 VBG Total CO2 VBG O2 Sat (Calc) VBG Base Excess VBG Potassium Sodium Chloride Glucose Lactate FiO2 Potassium Carbon Dioxide Anion Gap BUN Creatinine Est GFR ( Amer) Est GFR (Non-Af Amer) Random Glucose Calcium Phosphorus Magnesium Total Bilirubin AST ALT Alkaline Phosphatase Troponin I < 0.01 Total Protein Albumin Globulin Albumin/Globulin Ratio Venous Blood Potassium Urine Color Urine Appearance Urine pH Ur Specific [place] Urine Protein Urine Glucose (UA) Urine Ketones Urine Blood Urine Nitrate Urine Bilirubin Urine Urobilinogen Ur Leukocyte Esterase Urine RBC Urine WBC Ur Epithelial Cells EKG/Cardiology Studies: Cardiology / EKG Studies 11/14/17 16:58 EKG [ELECTROCARDIOGRAM] Stat Comment: Reason For Exam: vomit Review of Systems - Review of Systems All systems: reviewed and no additional remarkable complaints except (as per HPI ) Critical Care Progress Note - Prophylaxis GI Prophylaxis GI: PPI - Nutrition Nutrition: Nutrition Category Date Time Status NPO Diet [DIET] Diets 11/15/17 Breakfast Ordered Assessment/Plan - Assessment and Plan (Free Text) Assessment: Thi is a 72 year old female with PMHx of HTN, breast cancer who presented yesterday (11/14) [place] [facility] with massive upper GI bleed with elevated lactic acid level and significant drop in baseline Hgb. Pt's lactic acidosis has resolved, pt was transfused a 1 unit of pRBCs with 0.9 increase in Hgb. Pt's BP has been stable, and there have been no signs of GI bleeding overnight. She remains on protonix drip. Plan: Neuro: - Monitor for mental status changes Cardio: - Pt is hemodynamically stable - maintain MAP>65 - continue LR Pulm: - CXR (11/14) shows no active disease - maintain spo2 over 90% GI: - abdominal/pelv Ct without contrast shows mild diverticulosis of the descending and sigmoid colon without evidence of diverticulitis. - we will continue PTX ggt as per GI recs - GI recommends transfusion of pRBCs x 1 unit and transfer to telemetry - f/u serial CBC Renal: - replete electrolytes as needed - maintain euvolemia - continue LR IVF Endo: - maintain euglycemia ID: - lactic acidosis has resolved - WBC is trending downwards - UA (11/14) is positive for small leukocyte esterase - Urine Cx final shows no growth - BCx x 2 prelim shows no growth after 24 hours Heme: - H/h is stable (8.2, down from 8.4) - will transfuse 1 more unit of pRBCs as per GI PPX: PTX gtt; pt is ambulatory Dispo: Pt is stable and safe for transfer to med/surg; GI and PMD are agree with plan Case discussed and reviewed with attending physician, Dr. Low <Rohan Low - Last Filed: 11/15/17 18:55> CCU Objective - Vital Signs / Intake & Output Intake and Output (Last 8hrs): Intake & Output 11/15/17 11/15/17 11/15/17 06:59 14:59 22:59 Intake Total 861 375 0 Output Total 1755 1 Balance -894 375 -1 Weight 178 lb Intake: IV 761 Left Forearm 436 Left Hand 325 Oral 0 Blood Product 0 325 Red Blood Cells Cpd As1 325 Lr Unit [id number] Red Blood Cells Cpd As1 0 Lr Unit [id number] Other 100 50 Red Blood Cells Cpd As1 50 Lr Unit [id number] Red Blood Cells Cpd As1 100 Lr Unit [id number] Output: Urine 1755 1 Urine, Voided 1755 1 Other: # Bowel Movements 0 - Medications Active Medications: Active Medications Generic Name Dose Route Start Last Admin Trade Name Freq PRN Reason Stop Dose Admin Pantoprazole Sodium 40 mg in 100 mls @ 20 mls/hr 11/14/17 17:30 11/15/17 17: 34 Protonix 40mg Ivpb IVPB Not Given .Q5H GARTH Lactated Ringer's 1,000 mls @ 100 mls/hr 11/15/17 07:45 11/15/17 17:34 Lactated Ringer's IV Not Given .Q10H GARTH - Patient Studies Lab Studies: Microbiology Studies 11/14/17 16:50 Urine Culture - Final Urine Lab Studies 11/15/17 11/15/17 11/15/17 Range/Units 06:00 06:00 06:00 WBC (4.5-11.0) 10^3/ul RBC (3.5-6.1) 10^6/uL Hgb (12.0-16.0) g/dL Hct (36.0-48.0) % MCV (80.0-105.0) fl MCH (25.0-35.0) pg MCHC (31.0-37.0) g/dl RDW (11.5-14.5) % Plt Count (120.0-450.0) 10^3/uL MPV (7.0-11.0) fl pO2 102 H (30-55) mm/Hg VBG pH 7.33 (7.32-7.43) VBG pCO2 40.0 (40-60) VBG HCO3 21.1 (21-28) mmol/l VBG Total CO2 22.3 (22-28) mmol.L VBG O2 Sat (Calc) 99.8 H (40-65) % VBG Base Excess -4.5 L (0.0-2.0) mmol/L VBG Potassium 4.4 (3.6-5.2) mmol/L Sodium 142 139.0 (132-148) mmol/L Chloride 112 H 113.0 H (98-107) mmol/L Glucose 131 H (65-105) mg/dl Lactate 1.2 (0.7-2.1) mmol/L FiO2 21.0 % Potassium 4.4 (3.6-5.0) mmol/L Carbon Dioxide 21 (21-33) mmol/L Anion Gap 13 (10-20) BUN 81 H (7-21) mg/dL Creatinine 1.3 H (0.7-1.2) mg/dl Est GFR ( Amer) 48 Est GFR (Non-Af Amer) 40 Random Glucose 126 H (70-110) mg/dL Calcium 8.7 (8.4-10.5) mg/dL Phosphorus 3.6 (2.5-4.5) mg/dL Magnesium 2.2 (1.7-2.2) mg/dL Total Bilirubin 1.2 (0.2-1.3) mg/dL AST 26 (14-36) U/L ALT 42 (7-56) U/L Alkaline Phosphatase 63 (38-126) U/L Troponin I < 0.01 ng/mL Total Protein 5.3 L (5.8-8.3) g/dL Albumin 3.0 (3.0-4.8) g/dL Globulin 2.3 gm/dL Albumin/Globulin Ratio 1.3 (1.1-1.8) Venous Blood Potassium 4.4 (3.6-5.2) mmol/L 11/15/17 11/15/17 11/15/17 Range/Units 06:00 03:30 02:30 WBC 13.4 H 13.2 H D (4.5-11.0) 10^3/ul RBC 2.68 L 2.69 L (3.5-6.1) 10^6/uL Hgb 8.2 L 8.4 L (12.0-16.0) g/dL Hct 23.8 L 23.9 L (36.0-48.0) % MCV 88.8 88.8 (80.0-105.0) fl MCH 30.6 31.2 (25.0-35.0) pg MCHC 34.5 35.1 (31.0-37.0) g/dl RDW 14.3 14.0 (11.5-14.5) % Plt Count 179 165 (120.0-450.0) 10^3/uL MPV 10.0 10.4 (7.0-11.0) fl pO2 64 H (30-55) mm/Hg VBG pH 7.32 (7.32-7.43) VBG pCO2 42.0 (40-60) VBG HCO3 21.6 (21-28) mmol/l VBG Total CO2 22.9 (22-28) mmol.L VBG O2 Sat (Calc) 96.4 H (40-65) % VBG Base Excess -4.3 L (0.0-2.0) mmol/L VBG Potassium 4.4 (3.6-5.2) mmol/L Sodium 138.0 (132-148) mmol/L Chloride 113.0 H (98-107) mmol/L Glucose 141 H (65-105) mg/dl Lactate 1.1 (0.7-2.1) mmol/L FiO2 21.0 % Potassium (3.6-5.0) mmol/L Carbon Dioxide (21-33) mmol/L Anion Gap (10-20) BUN (7-21) mg/dL Creatinine (0.7-1.2) mg/dl Est GFR ( Amer) Est GFR (Non-Af Amer) Random Glucose (70-110) mg/dL Calcium (8.4-10.5) mg/dL Phosphorus (2.5-4.5) mg/dL Magnesium (1.7-2.2) mg/dL Total Bilirubin (0.2-1.3) mg/dL AST (14-36) U/L ALT (7-56) U/L Alkaline Phosphatase (38-126) U/L Troponin I ng/mL Total Protein (5.8-8.3) g/dL Albumin (3.0-4.8) g/dL Globulin gm/dL Albumin/Globulin Ratio (1.1-1.8) Venous Blood Potassium 4.4 (3.6-5.2) mmol/L 11/14/17 11/14/17 11/14/17 Range/Units 22:32 18:39 18:39 WBC 17.5 H (4.5-11.0) 10^3/ul RBC 2.37 L (3.5-6.1) 10^6/uL Hgb 7.5 L (12.0-16.0) g/dL Hct 21.5 L (36.0-48.0) % MCV 90.7 (80.0-105.0) fl MCH 31.6 (25.0-35.0) pg MCHC 34.9 (31.0-37.0) g/dl RDW 14.1 (11.5-14.5) % Plt Count 220 (120.0-450.0) 10^3/uL MPV 10.1 (7.0-11.0) fl pO2 62 H 52 (30-55) mm/Hg VBG pH 7.31 L 7.23 L (7.32-7.43) VBG pCO2 40.0 48.0 (40-60) VBG HCO3 20.1 L 20.1 L (21-28) mmol/l VBG Total CO2 21.3 L 21.6 L (22-28) mmol.L VBG O2 Sat (Calc) 95.1 H 88.9 H (40-65) % VBG Base Excess -5.8 L -7.5 L (0.0-2.0) mmol/L VBG Potassium 4.1 4.1 (3.6-5.2) mmol/L Sodium 139.0 138.0 (132-148) mmol/L Chloride 113.0 H 110.0 H (98-107) mmol/L Glucose 142 H 132 H (65-105) mg/dl Lactate 1.2 1.3 (0.7-2.1) mmol/L FiO2 21.0 21.0 % Potassium (3.6-5.0) mmol/L Carbon Dioxide (21-33) mmol/L Anion Gap (10-20) BUN (7-21) mg/dL Creatinine (0.7-1.2) mg/dl Est GFR ( Amer) Est GFR (Non-Af Amer) Random Glucose (70-110) mg/dL Calcium (8.4-10.5) mg/dL Phosphorus (2.5-4.5) mg/dL Magnesium (1.7-2.2) mg/dL Total Bilirubin (0.2-1.3) mg/dL AST (14-36) U/L ALT (7-56) U/L Alkaline Phosphatase (38-126) U/L Troponin I ng/mL Total Protein (5.8-8.3) g/dL Albumin (3.0-4.8) g/dL Globulin gm/dL Albumin/Globulin Ratio (1.1-1.8) Venous Blood Potassium 4.1 4.1 (3.6-5.2) mmol/L Laboratory Results - last 24 hr 11/14/17 11/14/17 11/14/17 18:39 18:39 22:32 WBC 17.5 H RBC 2.37 L Hgb 7.5 L Hct 21.5 L MCV 90.7 MCH 31.6 MCHC 34.9 RDW 14.1 Plt Count 220 MPV 10.1 pO2 52 62 H VBG pH 7.23 L 7.31 L VBG pCO2 48.0 40.0 VBG HCO3 20.1 L 20.1 L VBG Total CO2 21.6 L 21.3 L VBG O2 Sat (Calc) 88.9 H 95.1 H VBG Base Excess -7.5 L -5.8 L VBG Potassium 4.1 4.1 Sodium 138.0 139.0 Chloride 110.0 H 113.0 H Glucose 132 H 142 H Lactate 1.3 1.2 FiO2 21.0 21.0 Potassium Carbon Dioxide Anion Gap BUN Creatinine Est GFR ( Amer) Est GFR (Non-Af Amer) Random Glucose Calcium Phosphorus Magnesium Total Bilirubin AST ALT Alkaline Phosphatase Troponin I Total Protein Albumin Globulin Albumin/Globulin Ratio Venous Blood Potassium 4.1 4.1 11/15/17 11/15/17 11/15/17 02:30 03:30 06:00 WBC 13.2 H D 13.4 H RBC 2.69 L 2.68 L Hgb 8.4 L 8.2 L Hct 23.9 L 23.8 L MCV 88.8 88.8 MCH 31.2 30.6 MCHC 35.1 34.5 RDW 14.0 14.3 Plt Count 165 179 MPV 10.4 10.0 pO2 64 H VBG pH 7.32 VBG pCO2 42.0 VBG HCO3 21.6 VBG Total CO2 22.9 VBG O2 Sat (Calc) 96.4 H VBG Base Excess -4.3 L VBG Potassium 4.4 Sodium 138.0 Chloride 113.0 H Glucose 141 H Lactate 1.1 FiO2 21.0 Potassium Carbon Dioxide Anion Gap BUN Creatinine Est GFR ( Amer) Est GFR (Non-Af Amer) Random Glucose Calcium Phosphorus Magnesium Total Bilirubin AST ALT Alkaline Phosphatase Troponin I Total Protein Albumin Globulin Albumin/Globulin Ratio Venous Blood Potassium 4.4 11/15/17 11/15/17 11/15/17 06:00 06:00 06:00 WBC RBC Hgb Hct MCV MCH MCHC RDW Plt Count MPV pO2 102 H VBG pH 7.33 VBG pCO2 40.0 VBG HCO3 21.1 VBG Total CO2 22.3 VBG O2 Sat (Calc) 99.8 H VBG Base Excess -4.5 L VBG Potassium 4.4 Sodium 139.0 142 Chloride 113.0 H 112 H Glucose 131 H Lactate 1.2 FiO2 21.0 Potassium 4.4 Carbon Dioxide 21 Anion Gap 13 BUN 81 H Creatinine 1.3 H Est GFR ( Amer) 48 Est GFR (Non-Af Amer) 40 Random Glucose 126 H Calcium 8.7 Phosphorus 3.6 Magnesium 2.2 Total Bilirubin 1.2 AST 26 ALT 42 Alkaline Phosphatase 63 Troponin I < 0.01 Total Protein 5.3 L Albumin 3.0 Globulin 2.3 Albumin/Globulin Ratio 1.3 Venous Blood Potassium 4.4 Critical Care Progress Note - Nutrition Nutrition: Nutrition Category Date Time Status NPO Diet [DIET] Diets 11/15/17 Breakfast Ordered Attending/Attestation - Attestation I have personally seen and examined this patient.: Yes I have fully participated in the care of the patient.: Yes I have reviewed all pertinent clinical information: Yes Notes (Text): 11/15/17 18:[address] Low note
--- NOTE | 2017-11-15 17:11 | CARD ---
APPROVED REPORT Date of service: 11/14/2017 EKG Measurement Heart [id number] <Conclusion> Sinus bradycardia T wave abnormality, consider lateral ischemia Abnormal ECG
--- NOTE | 2017-11-15 18:01 | CON ---
DATE: 11/15/2017 GASTROENTEROLOGY CONSULTATION REQUESTING PHYSICIAN: Dr. Hoang. REASON FOR CONSULT: I have been asked to see this 72-year-old female who comes to the hospital with increasing weakness, melena, nausea, vomiting, and diarrhea. In the emergency room, the patient was noted to be anemic with a hemoglobin of 8.4 with an elevated white blood cell count. Her baseline hemoglobin runs in the 12 to 13 g range. With IV fluids, her hemoglobin dropped to 7.5. She did receive 1 unit of packed red blood cells. Routine admitting blood work also showed elevated BUN of 119 with a creatinine of 0.5. The patient's symptoms began on last after she ate a pork kebab at a [employer] festival. She had several episodes of nausea, vomiting, and diarrhea with the passage of melanotic stools. She does take ibuprofen 800 mg intermittently for chronic back pain and has not taken this for over a week. PAST MEDICAL HISTORY: Notable for breast cancer, hypertension, diverticulosis, last colonoscopy was 3 months ago. PAST SURGICAL HISTORY: Notable for right lumpectomy. SOCIAL HISTORY: She denies cigarette smoking or alcohol abuse. FAMILY HISTORY: Noncontributory. REVIEW OF SYSTEMS: A 14-point review of systems is notable for nausea, vomiting, diarrhea, melena, generalized weakness. MEDICATIONS AT HOME: Include ibuprofen 800 mg as needed, valsartan/hydrochlorothiazide 160/25, Femara, Cardizem 240 mg daily, and Zestril 40 mg once a day. PHYSICAL EXAMINATION: GENERAL: Well-developed female, lying in bed, in no acute distress. VITAL SIGNS: Reveal blood pressure 130/60, heart rate of 53. HEENT: Reveal sclerae to be white. Conjunctivae pale. NECK: Supple. CHEST: Reveals lungs to be clear. HEART: Reveals regular rate and rhythm. ABDOMEN: Soft, nontender. EXTREMITIES: Show no edema. LABORATORY DATA: Reveals white blood cell count 13.4, hemoglobin 8.2. BUN is down to 81, creatinine 1.3. AST, ALT, and alk phos were all normal. IMPRESSION: A 72-year-old female with several days of nausea, vomiting, diarrhea, melena with profound anemia and prerenal azotemia, most likely secondary to GI bleeding as well as dehydration. RECOMMENDATIONS: 1. Transfuse another unit of packed red blood cells. 2. Continue Protonix drip. 3. The patient wanted to go home today as she had some social commitments and responsibilities regarding the tenriism festival for tomorrow. I have convinced her to stay for an endoscopy in the morning and hopefully discharge home thereafter. Ck Doherty MD
[2017-11-16] MEDS: Pantoprazole 40mg/100mL NS 40 MG/100 ML BAG IVPB SCH ×4 (03:10→09:51)
[2017-11-16 07:15] LABS: BASO # 0.01 K/mm3 (0.0-2.0); BASO % 0.1 % (0.0-3.0); EOS # 0.1 (0.0-0.7); EOS % 1.3 % (1.5-5.0); GRAN # 6.51 (1.4-6.5); GRAN % 65.7 % (50.0-68.0); HEMOGLOBIN 9.5 g/dL (12.0-16.0); LYMPH # 2.5 (1.2-3.4); LYMPH % 25.4 % (22.0-35.0); MEAN CELL VOLUME 88.2 fl (80.0-105.0); MEAN CORPUSCULAR HEMOGLOBIN 30.4 pg (25.0-35.0); MEAN CORPUSCULAR HGB CONC 34.4 g/dl (31.0-37.0); MEAN PLATELET VOLUME 9.9 fl (7.0-11.0); MONO # 0.7 (0.1-0.6); MONO % 7.5 % (1.0-6.0); RBC 3.13 10^6/uL (3.5-6.1); RED CELL DISTRIBUTION WIDTH 15.5 % (11.5-14.5); WHITE BLOOD COUNT 9.9 10^3/ul (4.5-11.0)
[2017-11-16 07:46] LABS: ALB/GLOB RATIO 1.3 (1.1-1.8); ALBUMIN 2.9 g/dL (3.0-4.8); CALCIUM 8.7 mg/dL (8.4-10.5)
[2017-11-16] MEDS ORDERED: Propofol 10 mg/ml Inj (20 ML) ONE ×2 (08:04→08:16)
[2017-11-16] MEDS ORDERED: Lidocaine 1% Inj (20ml) ONE (08:04)
[2017-11-16 08:09] VITALS: TEMP 97.8
[2017-11-16] MEDS ORDERED: Sodium Chloride 0.9% 1,000 ML IV SCH (08:30)
[2017-11-16 08:45] VITALS: RESP 12
[2017-11-16 08:58] VITALS: BP 171/67; PULSE 50; O2SAT 97
--- NOTE | 2017-11-16 13:44 | PN ---
SUBJECTIVE: The patient was seen and examined at bedside on telemetry cuevas. No acute events overnight. She remains afebrile and hemodynamically stable. She denies any further episodes of hematemesis, melena or hematochezia. She is scheduled for EGD this morning with Dr. Doherty. OBJECTIVE: VITAL SIGNS: Temperature 97.8, pulse 64, blood pressure 171/65, respiratory rate 20, oxygen saturation 97% on room air. GENERAL: No apparent distress. HEENT: PERRL. EOMI. No scleral icterus. Conjunctival pallor is noted. NECK: No JVD. No bruits. LUNGS: Clear to auscultation. CARDIOVASCULAR: Regular rate and rhythm. Normal S1 and S2. ABDOMEN: Normoactive bowel sounds. Soft, nontender, nondistended. No rigidity , no tympany. EXTREMITIES: No edema. NEUROLOGIC: Awake, alert and oriented x 3. No focal motor deficits. LABORATORY DATA: WBC 9.9, hemoglobin 9.5, hematocrit 28, platelets 177. Chemistry reviewed and unremarkable. ASSESSMENT: The patient is a 72 year old woman with a past medical history of hypertension and breast cancer who presented with a 3 day history of hematemesis, melena and malaise and was initially admitted to the ICU for management of symptomatic anemia and suspected upper GI bleed who is pending EGD. PLAN: 1. Symptomatic anemia, likely secondary to upper GI bleed s/p multiple transfusions of PRBCs, improving. Labs demonstrate stable H/H. The patient is being taken to the endoscopy suite for EGD today. 2. Probable upper GI bleed. The patient remains on Protonix drip and IV fluid hydration. As above, she has been taken for EGD with Dr. Doherty. 3. Hypertension. Blood pressure remains stable off antihypertensives. We will continue to monitor hemodynamics and resume antihypertensives as needed. 4. Bradycardia, etiology likely secondary to Cardizem use, improving. 5. Prophylaxis. GI prophylaxis is not indicated as the patient remains on Protonix drip. DVT prophylaxis is not indicated as the patient is ambulatory. CODE STATUS: Full code. Clayton Hoang MD DT: 11/16/2017 10:29:30 [facility] # [id number] MTDMily
--- NOTE | 2017-11-17 08:33 | DS ---
ADMITTING DIAGNOSIS: Symptomatic anemia secondary to upper GI bleed. DISCHARGE DIAGNOSIS: Symptomatic anemia secondary to upper GI bleed secondary to gastric ulcers. SECONDARY DIAGNOSES: Hypertension and history of breast cancer. CONSULTATIONS: Dr. Doherty (Gastroenterology) and Dr. Low (Pulmonary and Critical Care Medicine). IMAGING DATA: 1. Chest x-ray demonstrated no acute pathology. 2. CT of the abdomen and pelvis without contrast demonstrated mild diverticulosis of the descending and sigmoid colon with no evidence of diverticulitis. PROCEDURES: EGD which demonstrated a small hiatal hernia with gastritis and two gastric ulcers with no evidence of active bleed. HISTORY OF PRESENT ILLNESS: The patient is a 72 year old woman with a past medical history of hypertension and breast cancer who presented for evaluation of a 3 day history of nausea, vomiting and diarrhea. The patient reports that she was in her usual state of health until approximately 3 days prior to presentation when she developed mild epigastric abdominal pain and subsequently developed nausea. Her symptoms then rapidly progressed to vomiting of coffee-ground emesis, melena and hematochezia. Several hours later she developed lightheadedness and near syncope and thus opted for ED evaluation. Upon arrival to the ED she was found to be hypotensive and bradycardic. She was also somnolent but arousable. Lab studies demonstrated a hemoglobin of 8.4 (baseline Hb 12-13). The patient was typed and cross matched for 2 units of PRBCs, started on IV fluid hydration and admitted to the ICU for continued management of symptomatic anemia suspected secondary to upper GI bleed. HOSPITAL COURSE: Upon admission to the ICU she was maintained on IV fluid hydration and a Protonix drip. She was evaluated by Dr. Doherty of GI and arrangements were made for EGD for further evaluation. The patient was taken to the Endoscopy Suite where she successfully underwent an EGD which demonstrated a small hiatal hernia, gastritis and 2 gastric ulcers. Given the fact that there was no evidence of active bleed and her symptoms had resolved since admission, she was cleared for discharge from the GI standpoint. CONDITION: Good, improved. DISPOSITION: Home. DISCHARGE MEDICATIONS: Valsartan/HCTZ 160/25 mg p.o. daily, Diltiazem CD 240 mg p.o. daily, Letrozole 2.5 mg p.o. daily, Protonix 40 mg p.o. b.i.d. and Feosol 325 mg p.o. t.i.d. DISCHARGE INSTRUCTIONS: The patient was advised to adhere to post endoscopy instructions as per Dr. Doherty. She was also advised to refrain from NSAIDs given her recent GI bleed and was furthermore advised that if she has any recurrence of her symptoms to present to her PMD or to the nearest ED immediately. FOLLOWUP: The patient to follow up her PMD within 1 week of discharge. The patient to follow up with Dr. Doherty as scheduled. Clayton Hoang MD MTDMily
== END 2017-11-16 10:51 | disposition home or self-care (01) | DRG 378 ==
LOC: ED 13:48 → ERH 16:30 → CCU 18:54 → 2RSO 11-15 11:52
PROVIDERS: ADMIT Student in an Organized Health Care Education/Training Program; ATTEND Student in an Organized Health Care Education/Training Program
PROC: 30233N1 Transfusion of Nonautologous Red Blood Cells into Peripheral Vein, Percutaneous Approach (ICD-10-PCS; 2017-11-14)
PROC: 0DB68ZX Excision of Stomach, Via Natural or Artificial Opening Endoscopic, Diagnostic (ICD-10-PCS; 2017-11-16)
PROC: 0DB98ZX Excision of Duodenum, Via Natural or Artificial Opening Endoscopic, Diagnostic (ICD-10-PCS; principal; 2017-11-16 08:00)
DX: K25.4 Chronic or unspecified gastric ulcer with hemorrhage (principal); E87.2 Acidosis; D50.0 Iron deficiency anemia secondary to blood loss (chronic); C50.919 Malignant neoplasm of unspecified site of unspecified female breast; E86.0 Dehydration; I10 Essential (primary) hypertension; R00.1 Bradycardia, unspecified; T46.1X5A Adverse effect of calcium-channel blockers, initial encounter; K44.9 Diaphragmatic hernia without obstruction or gangrene; K29.70 Gastritis, unspecified, without bleeding; K57.30 Diverticulosis of large intestine without perforation or abscess without bleeding

== ENCOUNTER 2018-03-04 15:56 | Emergency (ER) | payer MEDICARE ==
[2018-03-04 15:56] VITALS: BMI 30.9
[2018-03-04 17:44] VITALS: RESP 18; TEMP 98.2
[2018-03-04 17:53] LABS: BASO # 0.02 K/mm3 (0.0-2.0); BASO % 0.1 % (0.0-3.0); EOS # 0.1 (0.0-0.7); EOS % 0.8 % (1.5-5.0); GRAN # 10.94 (1.4-6.5); GRAN % 77.5 % (50.0-68.0); HEMOGLOBIN 13.9 g/dL (12.0-16.0); LYMPH # 1.6 (1.2-3.4); MEAN CELL VOLUME 92.1 fl (80.0-105.0); MEAN CORPUSCULAR HEMOGLOBIN 30.5 pg (25.0-35.0); MEAN CORPUSCULAR HGB CONC 33.2 g/dl (31.0-37.0); MEAN PLATELET VOLUME 10.4 fl (7.0-11.0); MONO # 1.5 (0.1-0.6); MONO % 10.6 % (1.0-6.0); RBC 4.55 10^6/uL (3.5-6.1); RED CELL DISTRIBUTION WIDTH 13.7 % (11.5-14.5); WHITE BLOOD COUNT 14.1 10^3/uL (4.5-11.0)
[2018-03-04 18:00] LABS: ALB/GLOB RATIO 1.2 (1.1-1.8); ALBUMIN 4.4 g/dL (3.0-4.8); BLOOD UREA NITROGEN 15 mg/dL (7-21); GFR NON-AFRICAN AMERICAN 54; URIC ACID 6.4 mg/dL (2.5-6.2)
--- NOTE | 2018-03-04 18:03 | ED PDOC ---
Arrival/HPI <Fernandez Rizzo - Last Filed: 03/04/18 19:16> - General Historian: Patient - History of Present Illness Narrative History of Present Illness (Text): This is a 72 year old female with PMH of GI bleed in November 2017, Gout (last episode in late 20s), arthritis, HTN, breast ca diagnosed 3 years ago, who presents with a 2 day history of redness, warmth, pain and swelling to the right foot and ankle. Pt states it is painful for her to walk or drive. She has taken Tylenol for the pain, which did not help. She has been applying ice to the foot since the symptoms began, which improved the swelling "a little." Denies fever, chills, cp, sob, abdominal pain, n/v/d, dysuria or urinary complaints, hx of clots, trauma to the foot, hx of car rides exceeding 1 hour, airplane trip within the last month, travel within the last month. Pt endorses traveling across the country in late November 2017. Pt denies consuming alcohol recently, or any new change in medications. PMD: [facility]: [facility]: [facility] PMH: GI bleed in November 2017, Gout (last episode in late 20s), arthritis, HTN, breast ca diagnosed 3 years ago (unsure of type, but had right lumpectomy and radiation therapy at time of diagnosis) PSH: rigth breast lumpectomy 3 years ago, total hysterectomy in her 20s, cholecystectmy in her late teens Meds: see MAR Allx: Codeine (sever swelling) Social hx: (+) smoking, approximately 50 pack year history, (+) social etoh, (-) illicit drug use Time/Duration: < week Symptom Course: Worsening Quality: Other (sharp) <Guanaco Piña - Last Filed: 03/06/18 07:16> - General Chief Complaint: Lower Extremity Problem/Injury Time Seen by Provider: 03/04/18 16:16 Past Medical History - Provider Review Nursing Documentation Reviewed: Yes - Infectious Disease Hx of Infectious Diseases: None - Cardiac Hx Hypertension: Yes - Pulmonary Hx Bronchitis: Yes - Neurological Hx Paralysis: No - Hematological/Oncological Hx Blood Transfusions: No Hx Blood Transfusion Reaction: No - Musculoskeletal/Rheumatological Hx Falls: Yes - Psychiatric Hx Emotional Abuse: No Hx Physical Abuse: No Hx Substance Use: No - Surgical History Other/Comment: Right Breast surgery for CA. - Anesthesia Hx Anesthesia: Yes Hx Anesthesia Reactions: No Hx Malignant Hyperthermia: No - Suicidal Assessment Feels Threatened In Home Enviroment: No <Guanaco Piña - Last Filed: 03/06/18 07:16> Family/Social History - Physician Review Nursing Documentation Reviewed: Yes Family/Social History: Unknown Family HX Smoking Status: Light Smoker < 10 Cigarettes Daily Hx Alcohol Use: Yes (RARE) Hx Substance Use: No <Guanaco Piña - Last Filed: 03/06/18 07:16> Allergies/Home Meds <Fernandez Rizzo - Last Filed: 03/04/18 19:16> <Guanaco Piña - Last Filed: 03/06/18 07:16> Allergies/Adverse Reactions: Allergies codeine Allergy (Severe, Verified 11/14/17 14:23) SEVERE SWELLING/RASH Home Medications: Home Meds Medication Instructions Recorded Confirmed Ibuprofen [Motrin Tab] 800 mg PO PRN PRN 11/15/17 11/15/17 Letrozole [Femara] 2.5 mg DAILY 11/15/17 11/15/17 Lisinopril [Zestril] 40 mg PO DAILY 11/15/17 11/15/17 Valsartan/Hydrochlorothiazide 1 each PO DAILY 11/15/17 11/15/17 [Valsartan-Hctz 160-25 mg Tab] diltiaZEM [Cardizem] 240 mg PO DAILY 11/15/17 11/15/17 Review of Systems - Review of Systems Constitutional: Normal Eyes: Normal ENT: Normal Respiratory: Normal Cardiovascular: Normal Gastrointestinal: Normal Genitourinary Female: Normal Musculoskeletal: Normal Skin: Other (pain, redness and swelling to the right lower extremity) <Guanaco Piña - Last Filed: 03/06/18 07:16> Physical Exam Vital Signs Temp Pulse Resp BP Pulse Ox 03/04/18 17:44 98.2 F 76 18 135/73 98 <Fernandez Rizzo - Last Filed: 03/04/18 19:16> Vital Signs Reviewed: Yes Vital Signs Temp Pulse Resp BP Pulse Ox 03/04/18 17:44 98.2 F 76 18 135/73 98 Temperature: Afebrile Blood Pressure: Normal Pulse: Regular Respiratory Rate: Normal Appearance: Positive for: Well-Appearing, Non-Toxic Pain Distress: None Mental Status: Positive for: Alert and Oriented X 3 - Systems Exam Head: Present: Atraumatic, Normocephalic Extroacular Muscles: Present: EOMI Conjunctiva: Present: Normal Mouth: Present: Moist Mucous Membranes Neck: Present: Normal Range of Motion Respiratory/Chest: Present: Clear to Auscultation. No: Respiratory Distress, Accessory Muscle Use, Wheezes, Rales Cardiovascular: Present: Regular Rate and Rhythm, Normal S1, S2. No: Murmurs, Irregular Rhythm, Tachycardic Abdomen: Present: Normal Bowel Sounds. No: Tenderness, Distention, Peritoneal Signs, Rebound, Guarding Upper Extremity: Present: Normal Inspection, NORMAL PULSES. No: Edema Lower Extremity: No: Normal Inspection, Edema, CALF TENDERNESS Neurological: Present: GCS=15 Skin: Present: Erythematous, Hot, Other (blanching erythema, swelling, warmth to the right foot and lateral right ankle; sensation is grossly intact and equal; pt is able to move her toes, but movement of toes is limited secondary to swelling; right DP and PT pulses cannot be palpated due to swelling; no signs of skin tears or puncture wound) Psychiatric: Present: Alert, Oriented x 3 <Guanaco Piña - Last Filed: 03/06/18 07:16> Medical Decision Making - Lab Interpretations Lab Results: 03/04/18 17:40 03/04/18 17:40 Lab Results 03/04/18 17:40: Sodium 141, Potassium 4.3, Chloride 104, Carbon Dioxide 29, Anion Gap 13, BUN 15, Creatinine 1.0, Est GFR ( Amer) > 60, Est GFR (Non- Af Amer) 54, Random Glucose 124 H, Uric Acid 6.4 H, Calcium 10.0, Total Bilirubin 0.8, AST 22, ALT 23, Alkaline Phosphatase 132 H D, Total Creatine Kinase 43, Total Protein 8.1, Albumin 4.4, Globulin 3.7, Albumin/Globulin Ratio 1.2 03/04/18 17:40: WBC 14.1 H, RBC 4.55, Hgb 13.9 D, Hct 41.9, MCV 92.1 D, MCH 30.5, MCHC 33.2, RDW 13.7, Plt Count 240, MPV 10.4, Gran % 77.5 H, Lymph % (Auto) 11.0 L, [place] % (Auto) 10.6 H, Eos % (Auto) 0.8 L, Baso % (Auto) 0.1, Gran # 10.94 H, Lymph # (Auto) 1.6, [place] # (Auto) 1.5 H, Eos # (Auto) 0.1, Baso # (Auto) 0.02 - RAD Interpretation Radiology Orders: 03/04/18 17:17 DUPLEX LOWER EXTRM VEIN RIGHT [US] Stat 03/04/18 18:18 FOOT RIGHT GREAT TOE ROUTINE [RAD] Stat 03/04/18 18:39 ANKLE RIGHT 3 VIEWS ROUTINE [RAD] Stat - Medication Orders Current Medication Orders: Colchicine (Colocrys) 1.8 mg PO ONCE ONE Stop: 03/05/18 18:38 Ampicillin Sodium/Sulbactam (Sodium 3 gm/ Sodium Chloride) 100 mls @ 100 mls/hr IVPB STAT STA; Protocol Stop: 03/04/18 19:25 Last Admin: 03/04/18 19:11 Dose: 100 mls/hr eMAR Start Stop Document 03/04/18 19:11 [email or web address] (Rec: 03/04/18 19:12 [email or web address] [id number]) Intravenous Solution Start Date 03/04/18 Start Time 19:12 <Fernandez Rizzo - Last Filed: 03/04/18 19:16> ED Course and Treatment: 72 year old female with right foot and ankle swelling, blanching erythema, warmth and pain. Pt febrile and not tachycardic. Differential includes DVT, cellulitis, gout. CBC, CMP, DDimer, CPK, Uric acid, right foot and ankle x-ray, right lower extremity duplex. 03/04/18 20:08 I informed the pt of the differential diagnoses, and that admission is recommended for continuing antibiotics and further testing. However, pt would like to leave the hospital. I explained to the pt the risks of leaving against medical advice. Including but not limited to bacteremia, sepsis, blood clot, disability, paralysis, amputation, . Pt understands and would like to leave the hospital. I stressed the importance of follow up with her PMD Dr. Hoang, as well as podiatry Dr. Conklin. She states that she will arrange to see them. I outlined the area of erythema and provided her with a prescription for Cephalexin 500 mg BID x10 days. Again, after signing the AMA form, I stressed the importance of follow up and that we would ideally like to keep her overnight. Pt adamantly refuses admission or further work up at this time and would like to go home. - Lab Interpretations Lab Results: 03/04/18 17:40 03/04/18 17:40 Lab Results 03/04/18 17:40: Sodium Pending, Potassium Pending, Chloride Pending, Carbon Dioxide Pending, Anion Gap Pending, BUN 15, Creatinine 1.0, Est GFR ( Amer) > 60, Est GFR (Non-Af Amer) 54, Random Glucose 124 H, Uric Acid 6.4 H, Calcium 10.0, Total Bilirubin 0.8, AST Pending, ALT Pending, Alkaline Phosphatase Pending, Total Creatine Kinase 43, Total Protein 8.1, Albumin 4.4, Globulin 3.7, Albumin/Globulin Ratio 1.2 03/04/18 17:40: WBC 14.1 H, RBC 4.55, Hgb 13.9 D, Hct 41.9, MCV 92.1 D, MCH 30.5, MCHC 33.2, RDW 13.7, Plt Count 240, MPV 10.4, Gran % 77.5 H, Lymph % (Auto) 11.0 L, [place] % (Auto) 10.6 H, Eos % (Auto) 0.8 L, Baso % (Auto) 0.1, Gran # 10.94 H, Lymph # (Auto) 1.6, [place] # (Auto) 1.5 H, Eos # (Auto) 0.1, Baso # (Auto) 0.02 - RAD Interpretation Radiology Orders: 03/04/18 17:16 FOOT RIGHT GREAT TOE ROUTINE [RAD] Stat 03/04/18 17:17 DUPLEX LOWER EXTRM VEIN RIGHT [US] Stat <Guanaco Piña - Last Filed: 03/06/18 07:16> Disposition/Present on Arrival <Fernandez Rizzo - Last Filed: 03/04/18 19:16> - Present on Arrival Any Indicators Present on Arrival: No History of DVT/PE: No History of Uncontrolled Diabetes: No Urinary Catheter: No History of Decub. Ulcer: No History Surgical Site Infection Following: None - Disposition Have Diagnosis and Disposition been Completed?: Yes Disposition Time: 19:00 <Guanaco Piña - Last Filed: 03/06/18 07:16> - Disposition Diagnosis: Foot pain, right, Cellulitis Disposition: AGAINST MEDICAL ADVICE Condition: STABLE Discharge Instructions (ExitCare): Cellulitis (ED) Prescriptions: Cephalexin [Keflex] 500 mg PO BID 10 Days #20 cap Forms: [employer] ([place])
[2018-03-04 18:05] LABS: ALT/SGPT 23 U/L (7-56); AST/SGOT 22 U/L (14-36)
--- NOTE | 2018-03-04 19:12 | RAD ---
PROCEDURE: Radiographs of the right great toe. TECHNIQUE:: AP radiograph of the right foot, with oblique and lateral view of the right great toe. COMPARISON: None. FINDINGS: BONES: Osteopenia. No acute fracture. JOINTS: Mild diffuse joint space narrowing SOFT TISSUES: Forefoot soft tissue swelling OTHER FINDINGS: None. IMPRESSION: Forefoot soft tissue swelling. No demonstrated fracture or dislocation.
[2018-03-05 05:24] VITALS: BP 131/85; PULSE 75; O2SAT 100
--- NOTE | 2018-03-05 09:27 | RAD ---
Date of service: 03/04/2018 PROCEDURE: Right Ankle Radiographs. HISTORY: edema w/ erythema of ankle COMPARISON: None available. FINDINGS: BONES: Normal. No fracture. JOINTS: Normal. No osteoarthritis. Ankle mortise maintained. Talar dome intact SOFT TISSUES: Severe soft tissue swelling over the lateral malleolus OTHER FINDINGS: Calcaneal spur at the Achilles attachment IMPRESSION: Soft tissue swelling with no evidence of fracture
--- NOTE | 2018-03-05 19:02 | US ---
PROCEDURE: Right lower extremity venous US HISTORY: Leg pain and swelling. Evaluate for DVT. PHYSICIAN(S): Cruz Shaffer M.D. TECHNIQUE: Duplex sonography and color-flow Doppler with graded compression were used to evaluate the deep venous system of the right lower extremity. FINDINGS: The visualized deep venous system of the right lower extremity is sonographically normal and compressible. Normal waveforms and augmentation are seen. There is no sonographic evidence for deep venous thrombosis in the visualized segments of the right lower extremity. IMPRESSION: 1. No sonographic evidence for deep venous thrombosis in the visualized segments of the right lower extremity.
== END 2018-03-04 20:30 | disposition left against medical advice (07) ==
LOC: ED 15:56
DX: M79.671 Pain in right foot (principal); L03.115 Cellulitis of right lower limb; F17.210 Nicotine dependence, cigarettes, uncomplicated; I10 Essential (primary) hypertension; Z85.3 Personal history of malignant neoplasm of breast
CPT/HCPCS: 73610; 73660; 80053; 82550; 84550; 85025; 93971; 96374; 99283; J0295

== ENCOUNTER 2018-07-27 13:21 | Outpatient (CLI) | payer MEDICARE | END 2018-07-27 13:22 | disposition home or self-care (01) | LOC: RAD 13:21 ==